=== PATIENT | female | born 1990 | race American Indian/Alaskan Native ===

== ENCOUNTER 2016-12-20 13:03 | Outpatient (CLI) | payer MEDICAID ==
[2016-12-20 13:39] VITALS: BP 119/72
[2016-12-20] MEDS ORDERED: LACTATED RINGERS 500 ML IV ONE (19:05)
== END 2016-12-20 17:23 | disposition home or self-care (01) ==
LOC: TRG 13:03
PROVIDERS: ATTEND Obstetrics & Gynecology
DX: O47.03 False labor before 37 completed weeks of gestation, third trimester (principal); Z3A.31 31 weeks gestation of pregnancy
CPT/HCPCS: 59025

== ENCOUNTER 2017-02-12 19:22 | Outpatient (CLI) | payer MEDICAID ==
[2017-02-12 20:59] VITALS: BP 117/76
--- NOTE | 2017-02-13 10:26 | Ultrasound Report ---
History: well being. BIOPHYSICAL PROFILE: 2 - breathing movements 2 - movements 2 - posture and tone 2 - Qualitative amniotic fluid volume 8 - TOTAL SCORE OF POSSIBLE 8 Heart Rate (bpm) 137 Gestation: Single Position: Cephalic Amniotic Fluid: AARON = 7.4 cm Placenta: Fundal Placental Grade: 1 Heart Rate: 137 BPM
== END 2017-02-12 22:27 | disposition home or self-care (01) ==
LOC: TRG 19:22
PROVIDERS: ATTEND Obstetrics & Gynecology
DX: O36.8130 Decreased fetal movements, third trimester, not applicable or unspecified (principal); O26.893 Other specified pregnancy related conditions, third trimester; R10.30 Lower abdominal pain, unspecified; Z3A.39 39 weeks gestation of pregnancy
CPT/HCPCS: 59025; 76815; 76819